=== PATIENT | female | born 1985 | race Caucasian/White ===

== ENCOUNTER 2023-12-22 05:21 | Inpatient (IN) ==
[2023-12-22] MEDS ORDERED: LIDOCAINE 1% LOCAL 20 ML VIAL INFIL PRN (06:17)
[2023-12-22] MEDS ORDERED: OXYTOCIN 30 UNITS/NSS 30 UNITS/500 ML BAG IV PRN ×2 (06:17→23:26)
[2023-12-22 06:43] LABS: Hematocrit (blood only) 37.8 % (37.0-47.0); Mean Corpuscular Hemoglobin 31.9 pg (25.0-34.0); Mean Corpuscular Hgb Conc 34.4 g/dL (32.0-36.0); Mean Corpuscular Volume 92.9 fL (80.0-100.0); Mean Platelet Volume 11.8 fL (9.4-12.4); Platelet Count 151 K/uL (130-400); RDW Coefficient of Variation 12.5 % (11.5-14.5); RDW Standard Deviation 42.4 fL (36.4-46.3); Red Blood Count 4.07 M/uL (4.20-5.40); White Blood Count 11.89 K/ul (4.8-10.8)
[2023-12-22] MEDS: LACTATED RINGER'S 1,000 ML IV SCH (07:00)
[2023-12-22] MEDS ORDERED: fentaNYL citrate PF 100 MCG/2 ML VIAL EPI PRN (07:03)
[2023-12-22] MEDS ORDERED: ePHEDrine sulfate 50 MG/ML AMP IV PRN (07:03)
[2023-12-22] MEDS ORDERED: BUPIVACAINE 0.25% PF 30 ML VIAL EPI PRN (07:03)
[2023-12-22] MEDS ORDERED: ROPIVACAINE 0.5% PF 5 MG/ML 20 ML VIAL EPI PRN (07:03)
[2023-12-22] MEDS ORDERED: diphenhydrAMINE 50 MG/ML VIAL IV PRN (07:03)
[2023-12-22] MEDS ORDERED: NALBUPHINE HCL INJ 10 MG/ML AMP IV PRN (07:03)
[2023-12-22] MEDS ORDERED: NALOXONE HCL 0.4 MG/1 ML VIAL/CARP IV PRN (07:03)
[2023-12-22] MEDS ORDERED: SODIUM CHLORIDE 0.9% PF INJ 10 ML VIAL EPI PRN (07:03)
[2023-12-22] MEDS ORDERED: LIDOCAINE 2% MPF LOCAL 5 ML VIAL EPI PRN (07:03)
[2023-12-22] MEDS ORDERED: NALOXONE HCL 1 MG in SODIUM CHLORIDE 0.9% 1,000 ML IV PRN (07:03)
--- NOTE | 2023-12-22 07:03 | Anesthesiology Consultation ---
Date of Service December 22, 2023 Assessment & Plan ASA ASA2 Proposed Anesthesia Anesthesia Type: Labor Epidural Risk / Benefits Reviewed With: PT / POA / Parent / Guardian, Accepts Plan and Informed Consent Obtained History Height/Weight Height: 5 ft 7 in Weight: 71.214 kg Allergies Allergy/AdvReac Type Severity Reaction Status Date / Time No Known Allergies Allergy Unverified 12/19/23 08:59 Medications Home Medications Medication Instructions Recorded Confirmed Last Taken aspirin 81 mg tablet,delayed 81 mg PO DAILY 07/10/23 12/22/23 Unknown release (Adult Low Dose Aspirin) neofepqw-[id number]-Ho-[id number] 1 mg 1 tab PO DAILY 12/22/23 12/22/23 Unknown tablet Past Medical History Medical History (Updated 06/19/23 @ 09:07 by Adrienne Shook MD, FACOG) Graves disease History of chicken pox Exercise / Class Metabolic Activity II 4-5 Yardwork/Stairs/Walk up hill Past Family History Family History (Updated 06/04/23 @ 10:58 by Herminia Paris) Grandmother (Maternal) Breast cancer Grandfather (Paternal) Heart disease Hypertension Denies family history of Ovarian cancer Colorectal cancer Past Surgical History Surgical History (Updated 06/04/23 @ 11:14 by Herminia Paris) Status post colposcopy S/P wisdom tooth extraction Past Anesthesia History No Hx of Anesthesia Complications and No Family Hx of Anesthesia Complications History of PONV No Hx of PONV and No Hx of Motion Sickness Social History Smoking Status: Never smoker Do You Dip or Chew Tobacco: No Hx Alcohol Use: No Hx Substance Use: No Review of Systems denies fever/cough/ colds/ chest pain/ SOB/ SILVER denies SILVER Physical Exam Vital Signs Last Vital Signs Temp 36.7 C 12/22/23 05:47 Pulse 76 12/22/23 05:42 Resp 18 12/22/23 05:47 BP 125/79 12/22/23 05:42 ENMT Mouth: no TMJ abnormality and no dentition abnormality Thyromental Distance: > or= 3.5 Finger Breadths Mallampati Class: II Neck neck extension not limited Respiratory normal respiratory effort; no respiratory distress Auscultation: lungs clear to auscultation bilaterally Cardiovascular Rate/Rhythm: regular rate and regular rhythm Neurologic moves all extremities Psychiatric Orientation: alert and oriented x 3 Testing Laboratory Results 12/22/23 06:26
[2023-12-22] MEDS: LIDOCAINE 2%/EPINEPHRINE 1:200,000 20 ML PF ONE (07:48)
[2023-12-22] MEDS: BUPIVACAINE 0.25% PF 30 ML VIAL ONE (08:20)
[2023-12-22] MEDS: fentANYL 2 MCG/ML BUPIVacaine 0.125%-NSS 100ML BAG EPI PRN (08:26)
[2023-12-22] MEDS: SODIUM CHLORIDE 0.9% PF INJ 10 ML VIAL ONE (08:28)
[2023-12-22] MEDS: fentaNYL citrate PF 100 MCG/2 ML VIAL ONE (10:32)
[2023-12-22] MEDS: LIDOCAINE 2%/EPINEPHRINE 1:200,000 20 ML PF EPI STA (10:33)
[2023-12-22] MEDS: BUPIVACAINE 0.25% PF 30 ML VIAL EPI STA (10:33)
[2023-12-22] MEDS: SODIUM CHLORIDE 0.9% PF INJ 10 ML VIAL EPI STA (10:33)
[2023-12-22] MEDS: fentANYL 2 MCG/ML BUPIVacaine 0.125%-NSS 100ML BAG ONE (10:33)
[2023-12-22] MEDS: fentaNYL citrate PF 100 MCG/2 ML VIAL EPI STA (10:33)
--- NOTE | 2023-12-22 12:13 | History & Physical Report ---
Date of Service December 22, 2023 Assessment & Plan (1) Elderly primigravida: Plan: IUP at term in active labor. Epidural requested and is effective. Membranes were ruptured for small amount of clear fluid. Anticipate vaginal . Admission and Anticipated Discharge Date Admission Date: December 22, 2023 History of Present Illness Primary Care Provider: Saleem Kitchen DO Patient is a 38-year-old 1 P0 female EDC 12/22/2023 who presented at 40 weeks in active labor. No S PROM and a small amount of bloody show but noted. was complicated by IVF gestation and AMA status. testing was reassuring. She does have a history of Graves' disease but is not been t reated for over 10 years. Thyroid testing during were normal. GBS is negative. Allergies Allergy/AdvReac Type Severity Reaction Status Date / Time No Known Allergies Allergy Unverified 12/19/23 08:59 Home Medications Medication Instructions Recorded Confirmed Type aspirin 81 mg tablet,delayed 81 mg PO DAILY 07/10/23 12/22/23 History release (Adult Low Dose Aspirin) mjejwuzk-[id number]-Gl-FA 1 mg 1 tab PO DAILY 12/22/23 12/22/23 History tablet Patient History Medical History (Updated 12/22/23 @ 12:12 by Cora Shin MD, FACOG) Graves disease History of chicken pox Surgical History (Updated 06/04/23 @ 11:14 by Herminia Paris) Status post colposcopy S/P wisdom tooth extraction Family History (Updated 06/04/23 @ 10:58 by Herminia Paris) Grandmother (Maternal) Breast cancer Grandfather (Paternal) Heart disease Hypertension Denies family history of Ovarian cancer Colorectal cancer Social History (Updated 06/04/23 @ 10:59 by Herminia Paris) Smoking Status: Never smoker Do You Dip or Chew Tobacco: No; Hx Alcohol Use: No Hx Substance Use: No Preferred Language: Turkish Communication Ability: Effective Retail Reset Merchandiser Required: Voice Beliefs That Will Affect Care: None marital status: marital status details: Jose Raymundo (38) [phone] Current Living Situation: Spouse Current Living Situation Comment: lives with spouse, no pets current occupational status: employed current occupation: [employer] Other Information That Helps Us Care for You: No Feels Safe at Home: Yes Safety Concerns: Feels Safe At This Time Review of Systems All systems reviewed & are unremarkable except as noted in HPI & below Physical Exam Constitutional: WD/WN, vitals as above Psychiatric: A+Ox3, euthymic affect Genitourinary: OB Exam Abdomen: + vertex, + estimated weight (7-8 pounds) and + regular contractions Manual OB Exam: + cervical dilation (per nursing exam) 4 cm OB Exam Monitor Tracing: + external FHT monitor used, + external uterine monitor used, + category I and + normal FHT variability Results & Data Vital Signs (Past 12 Hours) Vital Signs Temp Pulse Resp BP Pulse Ox 12/22/23 12:02 60 96 12/22/23 11:57 64 96 12/22/23 11:54 65 107/66 12/22/23 11:52 65 96 12/22/23 11:47 67 97 12/22/23 11:42 67 96 12/22/23 11:40 65 104/65 12/22/23 11:37 67 97 12/22/23 11:32 67 96 12/22/23 11:27 80 97 12/22/23 11:25 68 110/68 12/22/23 11:22 76 98 12/22/23 11:17 68 96 12/22/23 11:12 65 96 12/22/23 11:10 65 106/56 L 12/22/23 11:07 66 95 12/22/23 11:02 65 95 12/22/23 10:57 66 95 12/22/23 10:54 64 102/61 12/22/23 10:52 66 96 12/22/23 10:47 67 95 12/22/23 10:42 71 96 12/22/23 10:40 65 99/64 L 12/22/23 10:37 72 97 12/22/23 10:32 66 96 12/22/23 10:27 70 96 12/22/23 10:24 71 108/62 12/22/23 10:22 76 96 12/22/23 10:17 80 96 12/22/23 10:12 72 97 12/22/23 10:10 80 107/62 12/22/23 10:07 79 97 12/22/23 10:02 79 98 12/22/23 09:57 70 97 12/22/23 09:54 75 93/55 L 12/22/23 09:52 71 97 12/22/23 09:47 76 98 12/22/23 09:42 68 99 12/22/23 09:41 67 94/56 L 12/22/23 09:37 75 97 12/22/23 09:32 72 98 12/22/23 09:27 71 99 12/22/23 09:24 74 95/51 L 12/22/23 09:22 71 99 12/22/23 09:20 75 111/66 12/22/23 09:17 79 98 12/22/23 09:12 71 99 12/22/23 09:07 75 100 12/22/23 09:05 75 100/50 L 12/22/23 09:02 72 98 12/22/23 09:00 73 95/56 L 12/22/23 08:57 67 99 12/22/23 08:55 72 83/47 L 12/22/23 08:52 69 99 12/22/23 08:48 77 97/52 L 12/22/23 08:47 73 99 12/22/23 08:42 82 95/61 L 98 12/22/23 08:40 74 95/64 L 12/22/23 08:38 123 H 87/57 L 12/22/23 08:37 75 100 12/22/23 08:36 71 94/50 L 12/22/23 08:34 78 94/55 L 12/22/23 08:32 98 12/22/23 08:32 79 12/22/23 08:32 76 91/52 L 12/22/23 08:30 93 H 93/51 L 12/22/23 08:28 98 H 104/60 12/22/23 08:27 94 H 98 12/22/23 08:26 87 124/71 12/22/23 08:24 83 117/70 12/22/23 08:22 97 12/22/23 08:22 87 12/22/23 08:22 85 115/68 12/22/23 08:20 81 126/65 12/22/23 08:18 86 134/84 12/22/23 08:17 90 98 12/22/23 08:16 82 131/77 12/22/23 08:12 82 136/82 96 12/22/23 08:07 97 12/22/23 08:07 77 12/22/23 08:07 76 132/85 12/22/23 08:02 75 97 12/22/23 08:01 75 119/74 12/22/23 07:57 82 97 12/22/23 07:53 77 124/73 12/22/23 07:52 92 H 98 12/22/23 07:51 81 121/73 12/22/23 07:49 78 127/80 12/22/23 07:47 108 H 152/81 H 98 12/22/23 07:45 83 137/69 12/22/23 07:42 99 H 100 12/22/23 07:37 78 97 12/22/23 07:32 92 H 98 12/22/23 07:31 68 120/69 12/22/23 07:29 67 123/67 12/22/23 07:27 99 12/22/23 07:27 71 12/22/23 07:27 86 136/81 12/22/23 07:25 75 127/84 12/22/23 07:22 77 97 12/22/23 07:17 76 98 12/22/23 07:12 73 98 12/22/23 05:47 98.1 F 18 12/22/23 05:42 76 125/79 Coding Level of Care Code 89052 INT INP/OBS CARE /40MIN Diagnoses Primigravida of advanced maternal age in third trimester O09.513 Trimester: third trimester (1) Elderly primigravida Trimester: third trimester Qualified Code(s): O09.513 - Supervision of elderly primigravida, third trimester
[2023-12-22] MEDS: OXYTOCIN 30 UNITS/NSS 30 UNITS/500 ML BAG IV PRN (17:20)
[2023-12-22] MEDS: ePHEDrine sulfate 50 MG/ML AMP ONE (18:29)
[2023-12-22] MEDS: ONDANSETRON INJ 2 MG/ML 2 ML VIAL IV PRN (19:29)
[2023-12-22] MEDS ORDERED: oxyCODONE/ACETAMINOPHEN 5mg/325mg TAB PO PRN (23:26)
[2023-12-22] MEDS ORDERED: HYDROCORTISONE ACETATE 25 MG SUPP PR PRN (23:26)
[2023-12-23] MEDS: SILVER NITR/POTASSIUM NITRATE APPLICATOR ONE (00:02)
[2023-12-23] MEDS: DIPHTHER/TETAN/PERTUS Vaccine (Tdap, Adol/Adult) 0.5mL IM ONE (00:07)
--- NOTE | 2023-12-23 00:09 | Delivery Summary ---
Vaginal Delivery Summary Date of Service December 23, 2023 Vaginal Delivery Summary and 2nd Degree LAC Patient is a 38-year-old 1 P0 female at 40 weeks who presented in active labor. She received effective epidural analgesia. Once she was comfortable membranes were ruptured for clear fluid. She did require Pitocin augmentation of her contraction pattern. She progressed to full dilation with the urge to push. She is pushing effectively however perineum was tight and a episiotomy was cut with the patient's consent. Through the next contraction, the head delivered. A loose nuchal cord was reduced before delivering the shoulders. With maternal effort, the anterior shoulder delivered followed by the posterior arm. The rest of the infant then delivered easily was placed on the mother's abdomen for tension and drying. The male was crying but had decreased tone and was taken to the baby bed for further evaluation. Cord was clamped and cut after 1 minute prior to moving the baby to the baby bed. After cord blood was obtained, the placenta was expressed intact with a three-vessel cord. bleeding was controlled with dilute Pitocin and fundal massage. A second-degree episiotomy and left sulcal tear was repaired with 3-0 chromic in the usual fashion. 2 skin tags were also removed from the perineum per the patient's request. Bleeding at the sites was controlled with silver nitrate. QBL was 547 mL [facility] Vaginal Delivery Charge Delivery Type Details: and 2nd Degree LAC
[2023-12-23] MEDS: BENZOCAINE 20% SPRY 85 APPLN/85 GM CAN EXT PRN (00:23)
[2023-12-23] MEDS: IBUPROFEN 600 MG TAB PO PRN (00:23)
--- NOTE | 2023-12-23 00:25 | Anesthesia Procedure Note ---
Date of Service December 23, 2023 Anesthesia Post Epidural Note Vital Signs Vital Signs: Temp Pulse Resp BP Pulse Ox 36.8 C 82 18 124/71 97 12/22/23 21:00 12/23/23 00:11 12/22/23 23:30 12/23/23 00:11 12/22/23 21:27 Notes Mental Status: alert / awake / arousable Nausea / Vomiting: adequately controlled Pain: adequately controlled Airway Patency, RR, SpO2: stable & adequate BP & HR: stable & adequate Hydration State: stable & adequate Neuraxial Anesthesia: was administered and sensory block is resolving Anesthetic Complications: no major complications apparent and Pt Satisfied with anesthetic care Epidural: Removed without complications and With tip intact
[2023-12-23 06:32] LABS: Hematocrit (blood only) 33.1 % (37.0-47.0); Hemoglobin 11.1 g/dl (12.0-16.0); Mean Corpuscular Hemoglobin 31.8 pg (25.0-34.0); Mean Corpuscular Hgb Conc 33.5 g/dL (32.0-36.0); Mean Corpuscular Volume 94.8 fL (80.0-100.0); Mean Platelet Volume 11.6 fL (9.4-12.4); Platelet Count 149 K/uL (130-400); RDW Coefficient of Variation 12.6 % (11.5-14.5); RDW Standard Deviation 43.6 fL (36.4-46.3); Red Blood Count 3.49 M/uL (4.20-5.40); White Blood Count 17.48 K/ul (4.8-10.8)
[2023-12-23] MEDS: PRENATAL VITAMIN 1 TAB PO SCH (08:58)
[2023-12-23] MEDS: DOCUSATE SODIUM 100 MG CAP PO SCH (08:58)
[2023-12-23] MEDS: ACETAMINOPHEN 325 MG TAB PO PRN (08:59)
--- NOTE | 2023-12-23 10:09 | Obstetrical Progress Note ---
Date of Service December 23, 2023 Assessment & Plan (1) Encounter for care and examination after delivery: satisfactory course continue current care plan Subjective Ambulation: ambulating normally Voiding: no voiding problems Passing Gas:: Yes Diet Tolerance:: regular diet Lochia:: Moderate Feeding Type:: breast feeding Review of Systems All systems reviewed & are unremarkable except as noted in HPI & below Physical Exam Constitutional WD/WN, vitals as above Psychiatric A+Ox3, euthymic affect Genitourinary OB Exam Abdomen: + fundal height Fundus: + firm and + relation to umbilicus (at U) Results & Data Vital Signs (Past 12 Hours) Vital Signs Temp Pulse Pulse Resp BP BP Pulse Ox 12/23/23 02:30 97.3 F L 83 16 115/66 97 12/23/23 01:26 71 107/58 L 12/23/23 01:11 86 129/80 12/23/23 00:56 93 H 111/65 12/23/23 00:41 75 106/58 L 12/23/23 00:30 18 12/23/23 00:26 80 124/65 12/23/23 00:11 82 124/71 12/23/23 00:00 98.2 F 18 12/22/23 23:56 73 123/67 12/22/23 23:41 81 133/73 12/22/23 23:30 18 12/22/23 23:26 88 124/75 12/22/23 23:11 72 110/60 12/22/23 22:56 75 148/65 H 12/22/23 22:41 82 139/82 12/22/23 22:30 18 12/22/23 22:30 18 12/22/23 22:26 82 145/84 H 12/22/23 22:12 71 121/70 O2 Del Method 12/23/23 02:30 Room Air 12/23/23 01:26 12/23/23 01:11 12/23/23 00:56 12/23/23 00:41 12/23/23 00:30 12/23/23 00:26 12/23/23 00:11 12/23/23 00:00 12/22/23 23:56 12/22/23 23:41 12/22/23 23:30 12/22/23 23:26 12/22/23 23:11 12/22/23 22:56 12/22/23 22:41 12/22/23 22:30 12/22/23 22:30 12/22/23 22:26 12/22/23 22:12
[2023-12-23] MEDS: bisacodyL 5 MG TABEC PO SCH (19:30)
[2023-12-24] MEDS ORDERED: bisacodyL 10 MG SUPP PR PRN
[2023-12-24 01:46] VITALS: RESP 18; O2SAT 98
[2023-12-24 06:39] LABS: Hematocrit (blood only) 27.5 % (37.0-47.0); Hemoglobin 9.2 g/dl (12.0-16.0)
--- NOTE | 2023-12-24 07:23 | Obstetrical Progress Note ---
Date of Service December 24, 2023 Assessment & Plan (1) Encounter for care and examination after delivery: 38 yo PP2 from , doing well -Meeting all pp milestones -Rh+/rubella immune/ -f/u 6 weeks for appt, stable for dc today Subjective Ambulation: ambulating normally Voiding: no voiding problems Passing Gas:: Yes Diet Tolerance:: regular diet Lochia:: Small Feeding Type:: breast feeding Pain well managed with medication Review of Systems Denies fevers, chills, n/v, BASS, CP, SOB Physical Exam Constitutional WD/WN, vitals as above no acute distress Respiratory normal respiratory effort, lungs clear to auscultation Cardiovascular RRR, no murmur, no edema Gastrointestinal (Abdomen) Percussion/Palpation: abdomen soft; abdomen nontender fundus firm at umbilicus and NT Musculoskeletal BLE symmetric, nonerythematous, nontender Results & Data Vital Signs (Past 12 Hours) Vital Signs Temp Pulse Resp BP Pulse Ox O2 Del Method 12/23/23 23:50 97.5 F L 56 L 18 118/70 98 Room Air 12/23/23 19:20 97.5 F L 67 20 114/74 97 Room Air
[2023-12-24 09:55] VITALS: BP 124/63; PULSE 63; TEMP 97.9
== END 2023-12-24 13:25 | disposition home or self-care (01) | DRG 807 ==
LOC: OPB 05:21 → 4S1 05:24 → 4E2 12-23 02:29